=== PATIENT | female | born 1985 | race Caucasian/White ===

== ENCOUNTER 2020-03-09 11:21 | Outpatient (NON) | payer OTHER, SELFPAY ==
[2020-03-09 23:58] LABS: SARS-CoV-2 RNA PCR Negative
== END 2020-03-09 11:22 ==
LOC: ANHCOVIDDT 11:25
PROVIDERS: PCP Internal Medicine; Visit Provider Nurse Practitioner
DX: J02.9 Acute pharyngitis, unspecified (principal); Z20.828 Contact with and (suspected) exposure to other viral communicable diseases
CPT/HCPCS: 87635; C9803; U0003

== ENCOUNTER 2020-03-13 10:09 | Outpatient (CLI) | payer OTHER, SELFPAY | END 2020-03-13 10:10 | disposition home or self-care (01) | PROVIDERS: PCP Internal Medicine; Visit Provider Clinical Nurse Specialist | DX: J02.9 Acute pharyngitis, unspecified (principal) | CPT/HCPCS: 87081; 87880 ==

== ENCOUNTER 2021-12-22 15:49 | Outpatient (CLI) | payer OTHER, SELFPAY ==
--- NOTE | ~2021-12-22 | MR_ITS ---
EXAMINATION: MR brain/brain stem wo/w con DATE: 12/22/2021 16:31 INDICATION: Migraine headache. TECHNIQUE: Magnetic resonance imaging (MRI) of the brain and brainstem was performed without and with 15 mL MultiHance intravenous contrast. COMPARISON: None. FINDINGS: There is no intracranial hemorrhage, acute infarction, or abnormal intracranial mass lesion . The ventricles are normal in size. The paranasal sinuses are clear. The orbits are normal. The mast oid air cells are normal. IMPRESSION: 1. Normal brain. Reviewed, dictated and finalized at location A. IMPRESSION: 1. Normal brain.
== END 2021-12-22 15:50 | disposition home or self-care (01) ==
PROVIDERS: PCP Internal Medicine; Visit Provider Clinical Nurse Specialist
DX: G43.909 Migraine, unspecified, not intractable, without status migrainosus (principal)
CPT/HCPCS: 70553; A9577

== ENCOUNTER 2022-02-22 15:00 | Outpatient (RCR) | payer OTHER, SELFPAY ==
--- NOTE | 2022-02-14 16:48 | STOPEVAL1 ---
Assessment and note entered by Kristie Quintanilla, CLOSET ORGANIZER Evaluation Information Assessment Status Evaluation Diagnosis Dysphonia Onset 7 months Subjective Information Patient reports she experienced COVID in the June of 2020, and had lost her sense of taste and smell, and feels that she never has recovered her voice since then. 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 Patient reports that since suffering COVID in June last year, she feels that her voice is raspy and that she never fully recovered. She denies allergies other than to a dog that she tries to avoid, and denies history of GERD. Patient's voice was evaluated. It was judged to be moderately hoarse and raspy with moderately reduced habitual pitch and moderately reduced pitch range. Vocal loudness was on the lowest end of within normal limits (68 dB when 68-72 is considered the average range for vocal loudness within the confines of the speech therapy room.) Patient was instructed in the use of a vocal hygiene program to assist with improving vocal quality, and laryngeal massage and voice relaxation techniques to assist with reducing the stress in the larynx. She voiced understanding of home program. Therapist instructed the patient to find means of obtaining the children's attention without raising her voice, such as use of a sam or hand-clapping. She voiced understanding. Patient will continue in Speech Therapy 2x weekly for four weeks to address instruction for breathing exercises and speech/voice techniques to reduce the stress on the vocal cords when speaking. Plan of Care Interventions Treatment of Voice ST Services Indicated Yes These treatments will address the objective and functional deficits as defined above. The patient will be
--- NOTE | 2022-03-02 10:30 | PCSTNOTE ---
The patient treatment was not able to be completed on 03/02/22. Will plan to continue treatment per plan of care.
--- NOTE | 2022-03-22 11:06 | STOPDC ---
Assessment and note entered by Kristie Quintanilla SCRAP HOOKER Evaluation Information Assessment Status Discharge - Pt Not Presen Assessment ST Clinical Summary DISCHARGE SUMMARY This patient was seen for a Voice Evaluation and one follow-up treatment to instruct the patient in the use of a vocal hygiene program, gastroesophageal reflux precautions, laryngeal massage and other vocal cord relaxation techniques, and the use of the yawn-sigh method to reduce vocal tension while speaking. 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 Patient cancelled her next session due to illnless in the family and then did not reschedule due to being close to the holidays. Patient is being discharged with home exercise program in place however goals were not fully achieved. Patient may return to Speech Therapy after the holidays. Thank you for this referral. Plan of Care ST Services Indicated No
== END 2022-05-02 14:01 | disposition home or self-care (01) ==
LOC: ANHST 15:00
PROVIDERS: PCP Internal Medicine; Visit Provider Otolaryngology
DX: R47.89 Other speech disturbances (principal)
CPT/HCPCS: 92507; 92524

== ENCOUNTER 2023-02-08 20:47 | Emergency (ER) | payer OTHER, SELFPAY ==
--- NOTE | ~2023-02-08 | CT_ITS ---
EXAMINATION: CT brain wo con DATE: 02/08/2023 21:55 INDICATION: Right-sided paresthesias. Headache. TECHNIQUE: Computed tomography (CT) of the head was performed without intravenous contrast. The mA wa s adjusted according to patient size. Iterative reconstruction technique was employed. The dose-lengt h product was 605.33 mGy-cm. COMPARISON: Brain MRI 12/22/2021 FINDINGS: There is no intracranial hemorrhage, acute infarction, or abnormal intracranial mass lesion . The ventricles are normal in size. There is mild mucosal thickening in the ethmoid sinuses. The mas toid air cells are normal. The orbits are normal. IMPRESSION: 1. Normal brain. Reviewed, dictated and finalized at location E. STRIAL MAINTENANCE ELECTRICIAN IMPRESSION: 1. Normal brain.
[2023-02-08 20:50] VITALS: BP 134/81; PULSE 56; RESP 20; TEMP 36.8; O2SAT 100
--- NOTE | 2023-02-08 21:33 | ED.GENADULT ---
HPI - General Adult General Chief complaint: Unspecified Stated complaint: dizziness, blurry vision X24 hours Time Seen by Provider: 02/08/23 20:56 Source: patient Mode of arrival: ambulatory Limitations: no limitations History of Present Illness HPI narrative: This is a 37-year-old female who presents to the ED with multiple complaints all beginning nearly 24 hours ago. States last night she started to have blurred vision along with right-sided numbness/tingling to the R arm and R foot. She also reports some back pain and mild frontal headache. She reports a history of migraines and this does not feel the same. states that she has been able to ambulate but with some difficulty due to this blurred vision. Denies diplopia, dizziness. Reports the back pain is on either side of the lower back and she has had this in the past and sees a chiropractor. She reports that the blurred vision may be worse in the right eye and she has had right eye twitching. She also states that her blood pressure was high at home and which is abnormal. Denies fevers, chills, neck pain, chest pain, shortness of breath, cough, abdominal pain, urinary problems. Related Data Allergies Allergy/AdvReac Type Severity Reaction Status Date / Time amoxicillin Allergy Intermediate diarrhea/Ra Verified 02/08/23 20:47 sh Penicillins Allergy Intermediate Diarrhea/Ra Verified 02/08/23 20:47 sh azithromycin Allergy Unknown Verified 02/08/23 20:47 methylprednisolone Allergy Unknown Verified 02/08/23 20:47 Review of Systems Review of Systems: All systems as dictated in [facility] Past Medical History Medical History Allergies Headache IBS (irritable bowel syndrome) Surgical History Surgical History [place] teeth removed Family History Family History Father Hypertension Grandparent Breast cancer Acute myocardial infarction Heart failure Social History Social History (Updated 07/29/22 @ 09:35 by Precious Patel CMA) Smoking status: Never smoker Alcohol intake: current Substance use: never Lack of Transportation: No Lack of Food: Never True Current Housing: I Have Housing Concerned About Future Housing: No Difficulty Paying Gas/Electric Bills: No Difficulty Paying for Meds: No Currently Unemployed: No Education: Bachelor's Degree Difficulty w/ Childcare or Family Care: No Living arrangements: with family Exam Narrative: GENERAL: Well-appearing, well-nourished, and in no acute distress. HEAD: Normocephalic, atraumatic. EYES: PERRLA and EOMI. photophobia present ENT: Nares clear, no rhinorrhea or epistaxis. Mucous membranes moist. Oropharynx without tonsillar hypertrophy exudate or other lesions. NECK: Supple. No adenopathy or masses. CHEST: No respiratory distress. Clear to auscultation. No wheezes rales or rhonchi HEART: Regular rate and rhythm. No murmur heard. Normal peripheral pulses. ABDOMEN: Soft, nontender, nondistended, normal active bowel sounds. MSK: Normal range of motion. No edema. SKIN: Warm, dry, no rash. NEURO: Alert and oriented x4. No focal deficits. Cranial nerves II through XII intact. Subjective sensory change (paresthesias) noted in the right hand and right foot distally. 5/5 strength throughout the upper and lower extremities. No facial droop. Normal speech. Answers questions appropriately. PSYCH: Normal mood and affect. Course Course Emergency Course: Reevaluation 2328: Patient is feeling improved but is still having slight photophobia. Consult 2: Spoke with Dr. Staley( Neurology). He does not feel strongly that she needs to stay in the hospital. He recommends having her follow-up with PCP for an MRI. Vital Signs Vital signs: Vital Signs Temperature 98.2 F 02/08/23 20:50 Pulse Rate 56 L
[2023-02-08 22:13] LABS: Basophils Percent Auto 0.5 % (0.2-1.2); Eosinophils Absolute Auto 0.2 K/mm3 (0-0.3); Eosinophils Percent Auto 3.1 % (0-4.4); Hematocrit 39.3 % (37.0-47.0); Hemoglobin 13.6 g/dL (12.0-15.0); Immature Granulocyte Absolute 0.01 K/mm3 (0.00-0.031); Immature Granulocyte Percent A 0.1 % (0-0.5); Lymphocytes Percent Auto 45.2 % (18.3-44.2); Mean Corpuscular HGB Conc 34.6 g/dl (32-36); Mean Corpuscular Hemoglobin 29.6 pg (26-34); Mean Corpuscular Volume 85.6 fl (80-100); Mean Platelet Volume 10.5 fl (7.4-10.4); Monocytes Absolute Auto 0.7 K/mm3 (0.1-0.6); Monocytes Percent Auto 8.4 % (2.6-8.5); Neutrophils Absolute Auto 3.3 K/mm3 (1.3-6.7); Neutrophils Percent Auto 42.7 % (45.5-73.1); Platelet Count Result 281 k/mm3 (150-375); Red Blood Count 4.59 M/mm3 (4.2-5.4); Red Cell Distribution Width 12.5 % (11.5-14.5); White Blood Count 7.7 K/mm3 (4.5-10.0)
[2023-02-08 22:23] LABS: Alanine Aminotransferase 19 U/L (6-35); Albumin Level 4.4 g/dL (3.5-5.1); Alkaline Phosphatase 51 U/L (38-126); Anion Gap 5 mmol/L (8-16); Aspartate Amino Transferase 24 U/L (14-36); Bilirubin,Total 0.6 mg/dL (0.2-1.3); Blood Urea Nitrogen 10 mg/dL (7-17); Calcium 9.5 mg/dL (8.4-10.2); Carbon Dioxide 28 mmol/L (22-30); Chloride 102 mmol/L (98-107); Estimated CRCL calculation 71 ml/min; Estimated Glomerular Filt Rate > 60; Glucose 90 mg/dL (65-110); Potassium 3.7 mmol/L (3.4-5.0); Sodium 135 mmol/L (137-145)
[2023-02-08] MEDS: KETOROLAC 15 MG/ML VIAL (*BKC) IV PUSH (22:42)
[2023-02-08] MEDS: diphenhydrAMINE HCl INJ 50 MG/ML VIAL 25 MG IV PUSH (22:42)
[2023-02-08 22:58] VITALS: BP 131/96; PULSE 60; RESP 15; O2SAT 99
[2023-02-08 23:19] VITALS: BP 129/89; PULSE 65; RESP 15; O2SAT 99
[2023-02-08 23:56] VITALS: BP 114/79; PULSE 56; RESP 12; O2SAT 98
== END 2023-02-08 23:56 | disposition home or self-care (01) ==
PROVIDERS: Emergency Provider Physician Assistant; PCP Internal Medicine
DX: R20.2 Paresthesia of skin (principal); R51.9 Headache, unspecified; K58.9 Irritable bowel syndrome, unspecified
CPT/HCPCS: 36415; 70450; 80053; 85025; 96374; 96375; 99284; J1200; J1885

== ENCOUNTER → 2023-03-16 11:18 | Outpatient (CLI) | payer OTHER, SELFPAY ==
--- NOTE | ~2023-03-16 | MR_ITS ---
MRI of the brain Clinical History: Migraine Technique: Axial and sagittal T1-weighted images were acquired. These were followed by axial T2-weigh gladys, diffusion weighted, gradient, and FLAIR images. Following intravenous administration of 13 cc Mu ltiHance gadolinium, T1-weighted fat-sat imaging was performed in the axial and coronal planes. COMPARISON: 12/22/2021 Findings: There is no abnormal signal in the brain parenchyma. No acute infarct, intracranial hemorrh age, or mass lesion seen. Ventricles and subarachnoid spaces are unremarkable. Orbits are unremarkable. Paranasal sinuses and m astoid air cells are clear. Major intracranial flow voids are intact. Sagittal midline structures are intact. No abnormal postcontrast enhancement identified. IMPRESSION: Unremarkable exam. Reviewed, dictated and finalized at location . ION MASTER IMPRESSION: Unremarkable exam.
--- NOTE | ~2023-03-16 | XR_ITS ---
EXAMINATION:XR_CERV2-3V_CR DATE: 03/16/2023 11:33 INDICATION: Neck pain TECHNIQUE: AP, lateral, and odontoid views of the cervical spine are provided. COMPARISON: None FINDINGS: Alignment is normal. The odontoid process is intact. No fracture is identified. Vertebral b nir heights and disk spaces are normal. Prevertebral soft tissues are normal. IMPRESSION: 1. No acute osseous abnormality. Reviewed, dictated and finalized at location L. ATE INVESTIGATOR SURVEILLANCE
== END ==
PROVIDERS: PCP Internal Medicine; Visit Provider Clinical Nurse Specialist
DX: G43.909 Migraine, unspecified, not intractable, without status migrainosus (principal); M54.2 Cervicalgia
CPT/HCPCS: 70553; 72040; A9577

== ENCOUNTER 2023-11-29 15:59 | Outpatient (CLI) | payer OTHER, SELFPAY ==
[2023-11-29 19:09] LABS: Basophils Percent Auto 0.3 % (0.2-1.2); Eosinophils Absolute Auto 0.1 K/mm3 (0-0.3); Eosinophils Percent Auto 0.9 % (0-4.4); Hematocrit 41.5 % (37.0-47.0); Hemoglobin 14.4 g/dL (12.0-15.0); Immature Granulocyte Absolute 0.01 K/mm3 (0.00-0.031); Immature Granulocyte Percent A 0.1 % (0-0.5); Lymphocytes Absolute Auto 3.75 K/mm3 (0.9-3.2); Lymphocytes Percent Auto 43.6 % (18.3-44.2); Mean Corpuscular HGB Conc 34.7 g/dl (32-36); Mean Corpuscular Hemoglobin 29.8 pg (26-34); Mean Corpuscular Volume 85.7 fl (80-100); Mean Platelet Volume 11.3 fl (7.4-10.4); Monocytes Absolute Auto 0.8 K/mm3 (0.1-0.6); Monocytes Percent Auto 9.6 % (2.6-8.5); Neutrophils Absolute Auto 3.9 K/mm3 (1.3-6.7); Neutrophils Percent Auto 45.5 % (45.5-73.1); Platelet Count Result 271 k/mm3 (150-375); Red Blood Count 4.84 M/mm3 (4.2-5.4); Red Cell Distribution Width 12.2 % (11.5-14.5); White Blood Count 8.6 K/mm3 (4.5-10.0)
[2023-11-29 19:44] LABS: Iron 103 ug/dL (37-170)
[2023-11-29 19:54] LABS: Percent Iron Saturation 32 % (20-50)
[2023-11-29 19:57] LABS: Alanine Aminotransferase 16 U/L (6-35); Albumin Level 4.4 g/dL (3.5-5.1); Alkaline Phosphatase 49 U/L (38-126); Anion Gap 9 mmol/L (4-12); Aspartate Amino Transferase 41 U/L (14-36); Bilirubin,Total 0.8 mg/dL (0.2-1.3); Blood Urea Nitrogen 9 mg/dL (7-17); Calcium 9.4 mg/dL (8.4-10.2); Carbon Dioxide 28 mmol/L (22-30); Chloride 100 mmol/L (98-107); Estimated Glomerular Filt Rate > 60; Glucose 65 mg/dL (65-110); Potassium 4.3 mmol/L (3.4-5.0); Sodium 137 mmol/L (137-145)
[2023-11-29 20:20] LABS: Vitamin D 25 Hydroxy 37.2 ng/mL
== END 2023-11-29 16:00 | disposition home or self-care (01) ==
LOC: ANHGOSHLAB 16:00
PROVIDERS: PCP Clinical Nurse Specialist; Visit Provider Clinical Nurse Specialist
DX: E55.9 Vitamin D deficiency, unspecified (principal); G43.909 Migraine, unspecified, not intractable, without status migrainosus; D64.9 Anemia, unspecified; K58.9 Irritable bowel syndrome, unspecified; R74.8 Abnormal levels of other serum enzymes
CPT/HCPCS: 36415; 80053; 82306; 82607; 82728; 83540; 83550; 84443; 85025

== ENCOUNTER 2024-11-12 14:47 | Outpatient (CLI) | payer OTHER, SELFPAY ==
--- NOTE | ~2024-11-12 | CT_ITS ---
EXAMINATION: CT chest abdomen pelvis w con DATE: 11/14/2024 9:48 CDT INDICATION: Unspecified abdominal pain TECHNIQUE: Computed tomography (CT) of the chest, abdomen, and pelvis was performed without intraveno us contrast. The dose-length product was 387.51 mGy-cm. COMPARISON: None FINDINGS: CHEST CT: Heart is not enlarged. No enlarged mediastinal or hilar lymph nodes. Thoracic aorta is unremarkable. Tracheobronchial tree is patent. Minimal dependent atelectasis. No pneumothorax. No pulmonary mass. N o pulmonary nodules. ABDOMEN/PELVIS CT: There is a 1.5 cm low-density mass in the posterior segment of the right lobe of the liver. A liver m ass MRI is recommended. The liver is otherwise unremarkable. Spleen, adrenal glands, pancreas, kidneys and gallbladder are unremarkable. No enlarged lymph nodes in the abdomen or pelvis identified. No colitis. No dilated bowel loops. Bladder is unremarkable. Uterus is unremarkable. Moderate amount of stool. IMPRESSION: 1. No CT evidence for an acute process in the Chest, Abdomen or Pelvis. 2. There is a 1.5 cm low-density mass in the posterior segment of the right lobe of the liver. A live r mass MRI is recommended. Reviewed, dictated and finalized at location A. IMPRESSION: 1. No CT evidence for an acute process in the Chest, Abdomen or Pelvis. 2. There is a 1.5 cm low-density mass in the posterior segment of the right lob e of the liver. A liver mass MRI is recommended.
--- OUTSIDE RECORDS SUMMARY | 2024-11-12 15:19 | XMS_ITS | Clinical Summary ---
Author Organization [facility] Address Formerly [facility] [place] [address] Care Team Providers Care Expander Name Role Phone ClaryRamon villatoro Alejandrina DO Primary Care Provider [phone] Allergies Active Allergy Reactions Criticality Noted Date Comments Amoxicillin Diarrhea,Rash Medium 12/29/2021 Azithromycin Rash Low 05/01/2023 Penicillins Rash Medium 12/29/2021 Medications escitalopram (LEXAPRO) 10 MG tablet Take 1 tablet (10 mg total) by mouth daily. 4 Active erenumab-aooe (AIMOVIG) 140 mg/mL injection (autoinjector)Maddison cations:Chronic migraine w/o aura w/o status migrainosus, not intractable ADMINISTER 1 ML UNDER THE SKIN EVERY 30 DAYS 1 mL 11 4 Active carBAMazepine XR (TEGRETOL XR) 100 MG 12 hr tabletIndications: Trigeminal neuralgia Take 1 tablet (100 mg total) by mouth daily. 30 tablet 11 4 025 Active NURTEC 75 MG disintegrating tabletIndications: Chronic migraine w/o aura w/o status migrainosus, not intractable DISSOLVE 1 TABLET(75 MG) ON THE TONGUE DAILY NEEDED FOR MIGRAINE. MAX OF 1 TABLET 75 MG IN 24 HOURS 8 tablet 5 5 Active Active Problems No known active problems Encounters Date Type Department Care Team Description 09/11/2024 [facility] Documentation [facility] - [address], [address] [place] [address] Twyla Ruiz MD from Last 3 Months Social History Tobacco Use Types Packs/Day Years Used Date Smoking Tobacco: Never Passive Smoke Exposure: Never Smokeless Tobacco: Never Tobacco Cessation:Counseling Given: Yes Alcohol Use Standard Drinks/Week Comments Not Currently 0 (1 standard drink = 0.6 oz pur e alcohol) PHQ-2 Answer Date Recorded Patient Health Questionnaire-2 Score 0 03/11/2024 Comments Unknown Sex and Gender Information Value Date Recorded Sex Assigned at Not on file Legal Sex Female 3:31 PM KENNEL STAFF MEMBER Gender Identity Not on file Sexual Orientation Not on file Last Filed Vital Signs Vital Sign Reading Time Taken Comments Blood Pressure 107/72 03/11/2024 2:28 PM KENNEL STAFF MEMBER Pulse 72 03/11/2024 2:01 PM KENNEL STAFF MEMBER Temperature 37.2 C (99 F) 03/11/2024 2:01 PM KENNEL STAFF MEMBER Respiratory Rate - - Oxygen Saturation 100% 03/11/2024 2:01 PM KENNEL STAFF MEMBER Inhaled Oxygen Concentration - - Weight 61.2 kg (135 lb) 03/11/2024 2:01 PM KENNEL STAFF MEMBER Height 165.1 cm (5' 5) 01/22/2024 2:12 PM CDT Body Mass Index 22.47 01/22/2024 2:12 PM CDT Plan of Treatment Upcoming Encounters Date Type Department Care Team (Late st Contact Info) Description 03/13/2025 2:00 PM KENNEL STAFF MEMBER Office Visit [facility] - [address], [address] [place] [phone] Twyla Ruiz MD [address] [place] [address] Health Maintenance Due Date Last Done Comments Cervical Cancer Screening Pa p Smear (Age 30 to 64) Every 3 Years 1987 Annual Physical 07/17/1990 Hepatitis C 07/17/2005 DTaP, Tdap and Td Vaccines ( 1 - Tdap) 07/17/2006 Hepatitis B Vaccines (1 of 3 - 19+ 3-dose series) 07/17/2006 HPV Vaccines (1 - 3-dose SCD M series) 07/17/2014 Cervical Cancer Screening Pa p with HPV Testing (Age 30 to 64) Every 5 Years 07/17/2017 Cervical Cancer Screening wi th HPV 07/17/2017 COVID-19 Vaccine (2023-2 5 season) 2023 10/09/2020, 09/06/2020 PHQ-2 (Physician [place]) 04/03/2024 03/11/2024 Meningococcal B Vaccine Aged Out No l onger eligible based on patient's age to complete this topic Meningococcal Vaccine Aged Out No rebecca daryn eligible based on patient's age to complete this topic Pneumococcal Vaccine: Pediatrics (0 to 5 Years) and At-Risk Patients (6 to 49 Years) Aged Out No longer eligible b ased on patient's age to complete this topic RSV Immunizations Under 20 Months Aged Out No longer eligible b ased on patient's age to complete this topic Insurance Care Teams Expander Relationship Specialty Start Date End Date Ramon Ayoub DO [facility] [address] [place] [address] PCP - General INTERNAL MEDICINE 05/01/23
--- OUTSIDE RECORDS SUMMARY | 2024-11-12 15:19 | XMS_ITS | Clinical Summary ---
Author Organization [facility] Address [address] [place] [address] [place] [address] Phone Care Team Providers Care Mental Health Worker Name Role Phone Rafia Varner NP Primary Care Provider + [phone] DonovanAmber MD Unavailable Allergies Active Allergy Reactions Criticality Noted Date Comments Amoxicillin Rash Medium 12/29/2021 Penicillins Rash Medium 12/29/2021 Medications topiramate (TOPAMAX) 25 mg tablet Take 1 tablet (25 mg total) by mouth daily 02/27/2023 Active Ubrelvy 50 mg tablet TAKE 1 TABLET BY MOUTH 1 TIME. MAY REPEAT DOSE 1 TIME AFTER 2 HOURS NEEDED 02/28/2023 Active Active Problems Problem Noted Date Diagnosed Date Family history of breast cancer 12/29/2021 Encounter for screening mammogram for breast can cer 12/29/2021 Breast cancer screening, high risk patient 12/29 Resolved Problems Problem Noted Date Diagnosed Date Resolved Date Encounter for nonprocreative genetic counseling and testing 12/29/2021 05/17/2023 Medical History Medical History Date Comments Anxiety Bronchitis Tuberculosis Headache Sinus problem Hoarseness Asthma Family History Medical History Relation Name Comments Breast cancer Maternal Grandmother PALB2+ Mother Teresa Breast cancer Paternal Grandmother Breast cancer Sister 1 Kareen PALB2+ Sister 1 Kareen PALB2+ Sister 2 Geeta PALB2+ Sister 3 Lavern PALB2 Sister 4 Aileen Relation Name Status Comments Brother Alive Father Alive Maternal Grandfather Maternal Grandmother Mother Teresa Alive Paternal Grandmother Sister 1 Kareen Alive Sister 2 Geeta Alive Sister 3 Lavern Alive Sister 4 Aileen Alive Social History Tobacco Use Types Packs/Day Years Used Date Smoking Tobacco: Never Tobacco Cessation:Counseling Given: Not Answered AUDIT-C Answer Date Recorded Frequency of Alcohol Consumption Not on file 05/17/2023 Q2: How many drinks containi ng alcohol do you have on a typical day when you are drinking? Patient does not drink Frequency of Binge Drinking Not on file 05/04 Comments No Sex and Gender Information Value Date Recorded Sex Assigned at Not on file Legal Sex Female 1:45 PM CHEESE TESTER Gender Identity Not on file Sexual Orientation Not on file Obstetrics History Para Term AB IAB SAB Ectopic Multiple Livin g Live Births 2 2 2 Date Outcome GA Total Labor Labor/2nd/3rd Weight Sex Type Anes PTL Laury A1 A5 Name Clin Term Term Last Filed Vital Signs Vital Sign Reading Time Taken Comments Blood Pressure 127/78 05/17/2023 2:23 PM CHEESE TESTER Pulse 59 05/17/2023 2:23 PM CHEESE TESTER Temperature 36.3 C (97.4 F) 05/17/2023 2:23 PM CHEESE TESTER Respiratory Rate 18 05/17/2023 2:23 PM CHEESE TESTER Oxygen Saturation 100% 05/17/2023 2:23 PM CHEESE TESTER Inhaled Oxygen Concentration - - Weight 62 kg (136 lb 9.6 oz) 05/17/2023 2:23 PM CHEESE TESTER Height 160 cm (5' 3) 05/17/2023 2:23 PM CHEESE TESTER Body Mass Index 24.2 05/17/2023 2:23 PM CHEESE TESTER Plan of Treatment Health Maintenance Due Date Last Done Comments Cervical Cancer Screening 1987 Depression Screening 1987 Hepatitis C Screening 1987 DTaP/Tdap/Td Vaccine (1 - Tdap) 07/17/1998 Varicella Vaccines (1 of 2 - 13+ 2-dose series) 07/17/2000 Hepatitis B Screening 07/17/2005 Regular Well Visit/Exam 18-64 07/17/2005 HPV Vaccines (1 - 3-dose SCD M series) 07/17/2014 Covid-19 Vaccine (3 - 2023-2 5 season) 2023 10/09/2020, 09/06/2020 Influenza Vaccine (#1) 2024 Pneumococcal vaccine <65 Aged Out No longer eligible based on patient's age to complete this topic Insurance CHOICE PLUS CHOICE PLUS Care Teams Mental Health Worker Relationship Specialty Start Date End Date Rafia Varner TOY ELECTRIC TRAIN REPAIRER PCP - General Cardiovascular Disease 12/29/21 Amber Man MD [address] [place] [address] Surgeon Breast Surgery 04/19/23
--- OUTSIDE RECORDS SUMMARY | 2024-11-12 15:19 | XMS_ITS | Encounter Summary ---
Author Organization [facility] Address [address] [place] [address] Care Team Providers Care Saw Boss Name Role Phone ClaryRamon villatoro Primary Care Provider Encounter Details Date Type Department Care Team (Late Contact Info) Description 05/03/2023 [employer]hart Message Enc [facility] - [address], [address] [phone] Twyla Ruiz MD [address] [place] [address] [phone] Medication Social History Tobacco Use Types Packs/Day Years Used Date Smoking Tobacco: Never Smokeless Tobacco: Never Alcohol Use Standard Drinks/Week Comments Not Currently 0 (1 standard drink = 0.6 oz pur e alcohol) Comments Unknown Sex and Gender Information Value Date Recorded Sex Assigned at Not on file Legal Sex Female 3:31 PM DOSIER OPERATOR Gender Identity Not on file Sexual Orientation Not on file documented as of this encounter Plan of Treatment Upcoming Encounters Date Type Department Care Team (Late st Contact Info) Description 03/13/2025 2:00 PM DOSIER OPERATOR Office Visit [facility] - [address], [address] [place] [phone] Twyla Ruiz MD [address] [place] [address] [phone] documented as of this encounter Visit Diagnoses Not on filedocumented in this encounter Care Teams Saw Boss Relationship Specialty Start Date End Date Ramon Ayoub DO [address] [facility] [address] [place] [address] PCP - General INTERNAL MEDICINE 05/01/23 documented as of this encounter
== END 2024-11-12 14:48 | disposition home or self-care (01) ==
PROVIDERS: PCP Internal Medicine; Visit Provider Clinical Nurse Specialist
DX: R10.9 Unspecified abdominal pain (principal)
CPT/HCPCS: 71260; 74177; Q9967

== ENCOUNTER 2025-01-23 07:51 | Outpatient (CLI) | payer OTHER, SELFPAY ==
--- NOTE | ~2025-01-23 | NM_ITS ---
EXAMINATION: NM_HEPATWP_NM DATE: 01/23/2025 10:11 INDICATION: Right upper quadrant abdominal pain COMPARISON: None. TECHNIQUE: 4.6 mCi Tc-99m mebrofenin (Choletec) was administered intravenously. Scintigraphic images of the abdomen were obtained for one hour. 1.3 mcg sincalide (Kinevac) was administered by slow intravenous infusion, and imaging was continued for 30 minutes. Gallbladder ejection fraction was calculated by the technologist. FINDINGS: There is normal clearance of radiotracer from the blood pool. There is homogeneous tracer uptake by the liver. Activity progresses to the gallbladder and bowel. The gallbladder ejection fraction (GBEF) is 81% (normal 10-90%, but most patient with gallbladder dysfunction have GBEF < 35% which does overlap with the normal range). IMPRESSION: 1. Normal hepatobiliary scan. Reviewed, dictated and finalized at location A.
--- OUTSIDE RECORDS SUMMARY | 2025-01-23 07:57 | XMS_ITS | Encounter Summary ---
Author Organization [facility] Address [address] [place] [address] Care Team Providers Care Head Of Human Resources Name Role Phone ClaryRamon villatoro Primary Care Provider Encounter Details Date Type Department Care Team (Late Contact Info) Description 05/03/2023 [employer] Message Enc [facility] - [address], [address] [phone] Twyla Ruiz MD [address] [place] [address] [phone] Medication Social History Tobacco Use Types Packs/Day Years Used Date Smoking Tobacco: Never Smokeless Tobacco: Never Alcohol Use Standard Drinks/Week Comments Not Currently 0 (1 standard drink = 0.6 oz pur e alcohol) Comments Unknown Sex and Gender Information Value Date Recorded Sex Assigned at Not on file Legal Sex Female 3:31 PM MEASUREMENT PSYCHOLOGIST Gender Identity Not on file Sexual Orientation Not on file documented as of this encounter Plan of Treatment Upcoming Encounters Date Type Department Care Team (Late st Contact Info) Description 03/13/2025 2:00 PM MEASUREMENT PSYCHOLOGIST Office Visit [facility] - [address], [address] [place] [phone] Twyla Ruiz MD [address] [place] [address] [phone] documented as of this encounter Visit Diagnoses Not on filedocumented in this encounter Care Teams Head Of Human Resources Relationship Specialty Start Date End Date Ramon Ayoub DO [address] [facility] [address] [place] [address] PCP - General INTERNAL MEDICINE 05/01/23 documented as of this encounter
--- OUTSIDE RECORDS SUMMARY | 2025-01-23 07:57 | XMS_ITS | Clinical Summary ---
Author Organization [facility] Address [address] [place] [address] Care Team Providers Care Relay Checker Name Role Phone Ramon Ayoub DO Primary Care Provider [phone] Allergies Active Allergy Reactions Criticality Noted Date [...] Active Active Problems No known active problems Social History Tobacco Use Types Packs/Day Years [...] on file Legal Sex Female 3:31 PM MODERN LANGUAGES PROFESSOR Gender Identity Not on file Sexual Orientation Not on file Last Filed Vital Signs Vital Sign Reading Time Taken Comments Blood Pressure 107/72 03/11/2024 2:28 PM MODERN LANGUAGES PROFESSOR Pulse 72 03/11/2024 2:01 PM MODERN LANGUAGES PROFESSOR Temperature 37.2 C (99 F) 03/11/2024 2:01 PM MODERN LANGUAGES PROFESSOR Respiratory Rate - - Oxygen Saturation 100% 03/11/2024 2:01 PM MODERN LANGUAGES PROFESSOR Inhaled Oxygen Concentration - - Weight 61.2 kg (135 lb) 03/11/2024 2:01 PM MODERN LANGUAGES PROFESSOR Height 165.1 cm (5' 5) 01/22/2024 2:12 PM CDT Body Mass Index 22.47 01/22/2024 2:12 PM CDT Plan of Treatment Upcoming Encounters Date Type Department Care Team (Late st Contact Info) Description 03/13/2025 2:00 PM MODERN LANGUAGES PROFESSOR Office Visit [facility] Multispecialty Care - [address], [address] [place] [address] Twyla Ruiz MD [address] [place] [address] Health Maintenance Due Date Last Done Comments [...] Cervical Cancer Screening wi th HPV 07/17/2017 PHQ-2 (Physician [place]) 04/03/2024 03/11/2024 COVID-19 Vaccine (3 - 2024-2 6 season) 2024 10/09/2020, 09/06/2020 Influenza Adult (#1) 2025 Hepatitis A Vaccines Aged Out No long er eligible based on patient's age to complete this topic Meningococcal B Vaccine Aged Out No l [...] patient's age to complete this topic Insurance [facility] [address] Care Teams Relay Checker Relationship Specialty Start Date End Date Ramon Ayoub DO [address] [facility] [address] [place] [address] PCP - General INTERNAL MEDICINE 05/01/23
--- OUTSIDE RECORDS SUMMARY | 2025-01-23 07:57 | XMS_ITS | Clinical Summary ---
Author Organization [facility] Address [address] [facility] [facility] [address] [place] [address] Phone Care Team Providers Care Motor Hotel Manager Name Role Phone Rafia Varner NP Primary Care Provider [phone] DonovanAmber MD Unavailable [phone] Allergies Active Allergy Reactions Criticality Noted Date [...] nonprocreative genetic counseling and testing 12/29/2021 05/17/2023 Encounters Date Type Department Care Team Description 11/19/2024 5:22 PM CDT - 11/19/2024 11:59 PM CDT Hospital Encounter [facility] [id number] [address] Hepatomegaly, not elsewhere classified Discharge Disposition: Discharge to home or self care 11/19/2024 Orders Only [facility] Health Information Management [address] [place] [address] Scanning, Provider from Last 3 Months Medical History Medical History Date Comments Anxiety [...] on file Legal Sex Female 1:45 PM CHANGE PERSON Gender Identity Not on file Sexual Orientation Not on file Obstetrics History Para Term AB IAB SAB Ectopic Multiple Livin g Live Births 2 2 2 Date Outcome GA Total Labor Labor/2nd/3rd Weight Sex Type Anes PTL Laury A1 A5 Name Clin Term Term Last Filed Vital Signs Vital Sign Reading Time Taken Comments Blood Pressure 127/78 05/17/2023 2:23 PM CHANGE PERSON Pulse 59 05/17/2023 2:23 PM CHANGE PERSON Temperature 36.3 C (97.4 F) 05/17/2023 2:23 PM CHANGE PERSON Respiratory Rate 18 05/17/2023 2:23 PM CHANGE PERSON Oxygen Saturation 100% 05/17/2023 2:23 PM CHANGE PERSON Inhaled Oxygen Concentration - - Weight 62 kg (136 lb 9.6 oz) 05/17/2023 2:23 PM CHANGE PERSON Height 160 cm (5' 3) 05/17/2023 2:23 PM CHANGE PERSON Body Mass Index 24.2 05/17/2023 2:23 PM CHANGE PERSON Plan of Treatment Health Maintenance Due Date Last Done Comments Cervical Cancer Screening 1985 Depression Screening 1987 Hepatitis C Screening 1985 DTaP/Tdap/Td Vaccine (1 - Tdap) 07/17/1998 Varicella Vaccines (1 of 2 - 13+ 2-dose series) 07/17/2000 Hepatitis B Screening 07/17/2005 Regular Well Visit/Exam 18-64 07/17/2005 HPV Vaccines (1 - 3-dose SCD M series) 07/17/2014 Covid-19 Vaccine (3 - 2024-2 6 season) 2024 10/09/2020, 09/06/2020 Influenza Vaccine (#1) 2024 Pneumococcal vaccine <65 Aged Out No longer eligible based on patient's age to complete this topic Procedures Procedure Name Priority Date/Time Associated Diagnosis Comments MRI ABDOMEN W WO CONTRAST Schedule Routine, Read Routine (OP Routine) 11/19/2024 6:20 PM CDT Hepatomegaly, not elsewhere classified SCAN - OTHER ORDERS 11/19/2024 from Last 3 Months Results * MRI Abdomen W WO Contrast (11/19/2024 6:20 PM CDT) Anatomical Region Laterality Modality Body N/A Magnetic Resonan ce 11/20/2024 9:33 AM CDT Impressions 11/20/2024 5:32 PM CDT Small segment 2 simple cyst and segment 6 benign hemangioma. Otherwise, normal MRI of the liver. Dictated by: Casper Leone MD The radiology attending physician has personally reviewed this study, and had reviewed and/or edited this written report and agrees with it. Electronically signed by: Geeta Love M.D. Narrative 11/20/2024 5:32 PM CDT EXAMINATION: MAGNETIC RESONANCE IMAGING OF THE ABDOMEN WITH AND WITHOUT CONTRAST HISTORY: Hepatomegaly, abdominal pain TECHNIQUE: Magnetic resonance imaging of the abdomen was performed prior to and following the uneventful administration of intravenous contrast. Protocol: Liver Contrast: Dotarem (gadoterate) 12 mL COMPARISON: CT 09/20/10 FINDINGS: Liver: No significant fat or iron deposition. - Bile ducts: Nondilated - Focal liver lesions: Segment 2 simple cyst and segment 6 hemangioma - Vasculature: Patent hepatic and portal veins. Gallbladder: Normal Pancreas: Normal Spleen: Normal Adrenals: Normal Kidneys: Normal Other Findings: No suspicious osseous lesion. Imaged lung bases are clear. No abdominal lymphadenopathy. Procedure Note Geeta Love MD - 11/20/2024 EXAMINATION: MAGNETIC RESONANCE IMAGING OF THE ABDOMEN WITH AND WITHOUT CONTRAST HISTORY: Hepatomegaly, abdominal pain TECHNIQUE: Magnetic resonance imaging of the abdomen was performed prior to and following the uneventful administration of intravenous contrast. Protocol: Liver Contrast: Dotarem (gadoterate) 12 mL COMPARISON: CT 09/20/10 FINDINGS: Liver: No significant fat or iron deposition. - Bile ducts: Nondilated - Focal liver lesions: Segment 2 simple cyst and segment 6 hemangioma - Vasculature: Patent hepatic and portal veins. Gallbladder: Normal Pancreas: Normal Spleen: Normal Adrenals: Normal Kidneys: Normal Other Findings: No suspicious osseous lesion. Imaged lung bases are clear. No abdominal lymphadenopathy. IMPRESSION: Small segment 2 simple cyst and segment 6 benign hemangioma. Otherwise, normal MRI of the liver. Dictated by: Casper Leone MD The radiology attending physician has personally reviewed this study, and had reviewed and/or edited this written report and agrees with it. Electronically signed by: Geeta Love M.D. Rafia Varner NP IM MRI PROCEDURES Final Res ult * SCAN - OTHER ORDERS (11/19/2024) Provider Scanning Final Result from Last 3 Months Insurance [facility] CHO[facility]US [facility] H[facility]/PPO Address: [address] [address] [facility] CHOICE [facility]US [facility] H[facility]/PPO Address: [place] [phone] Care Teams Motor Hotel Manager Relationship Specialty Start Date End Date Rafia Varner NP PCP - General Cardiovascular Disease 12/29/21 Amber Man MD [address] [place] [address] Surgeon Breast Surgery 04/19/23
== END 2025-01-23 07:52 | disposition home or self-care (01) ==
PROVIDERS: PCP Clinical Nurse Specialist; Visit Provider Nurse Practitioner Family
DX: R10.11 Right upper quadrant pain (principal); R10.13 Epigastric pain; R11.0 Nausea
CPT/HCPCS: 78227; A9537; J2805

== ENCOUNTER 2025-02-01 10:51 | Outpatient (NON) | payer OTHER, SELFPAY ==
--- NOTE | 2025-02-01 | S_PTH ---
PATIENT: Diana Abdi LOC: [facility] U#:[id number] AGE/SX: 39/F ROOM: RE02/01/[address]: Abner Carballo MD : 1985 BED: DIS: 02/01/2025 SPEC #: [id number] RECD: 02/04/25 11:49 STATUS: EZEQUIEL REQ #: [id number] DERRICK: 02/01/25 00:[address]: Abner Carballo DEPT: [facility] Surgical RECD BY: Claribel Braswell ENTERED: 02/04/25 11:50 SP TYPE: Surgical OTHR DR: Ramon Ayoub DO Tissues: A - Duodenal Biopsy B - Gastric Biopsy C - Gastric Biopsy Procedures: Hematoxylin and Eosin Stain Gross and Microscopic Level 4
--- OUTSIDE RECORDS SUMMARY | 2025-02-04 12:53 | XMS_ITS | Encounter Summary ---
Author Organization [facility] Address [address] [place] [address] Care Team Providers Care Defective Cigarette Slitter Name Role Phone ClaryRamon villatoro Primary Care Provider Encounter Details Date Type Department Care Team (Late Contact Info) Description 05/03/2023 Product World[employer] Message Enc [facility] - [address], [address] [phone] Twyla Ruiz MD [address] [place] [phone] Medication Social History Tobacco Use Types Packs/Day Years Used Date Smoking Tobacco: Never Smokeless Tobacco: Never Alcohol Use Standard Drinks/Week Comments Not Currently 0 (1 standard drink = 0.6 oz pur e alcohol) Comments Unknown Sex and Gender Information Value Date Recorded Sex Assigned at Not on file Legal Sex Female 3:31 PM ROUGH AND TRUING MACHINE OPERATOR Gender Identity Not on file Sexual Orientation Not on file documented as of this encounter Plan of Treatment Upcoming Encounters Date Type Department Care Team (Late st Contact Info) Description 03/13/2025 2:00 PM ROUGH AND TRUING MACHINE OPERATOR Office Visit [facility] - [address], [address] [place] [phone] Twyla Ruiz MD [address] [place] [phone] documented as of this encounter Visit Diagnoses Not on filedocumented in this encounter Care Teams Defective Cigarette Slitter Relationship Specialty Start Date End Date Ramon Ayoub DO [address] [facility] [address] [place] [address] PCP - General INTERNAL MEDICINE 05/01/23 documented as of this encounter
--- OUTSIDE RECORDS SUMMARY | 2025-02-04 12:53 | XMS_ITS | Clinical Summary ---
Author Organization [facility] Address [address] [facility] [address] [place] [address] Phone Care Team Providers Care Timber Treating Tank Operator Name Role Phone Rafia Varner NP Primary Care Provider [phone] DonovanAmber MD Unavailable [phone] Allergies Active Allergy Reactions Criticality Noted Date [...] - 11/19/2024 11:59 PM CDT Hospital Encounter [facility] [address] [address] Hepatomegaly, not elsewhere classified Discharge Disposition: Discharge to home or self care 11/19/2024 Orders Only [facility] Health Information Management 1 [place] [address] Scanning, Provider from Last 3 Months Medical [...] on file Legal Sex Female 1:45 PM PAVER INSTALLER Gender Identity Not on file Sexual Orientation Not on file Obstetrics History Para Term AB IAB SAB Ectopic Multiple Livin g Live Births 2 2 2 Date Outcome GA Total Labor Labor/2nd/3rd Weight Sex Type Anes PTL Laury A1 A5 Name Clin Term Term Last Filed Vital Signs Vital Sign Reading Time Taken Comments Blood Pressure 127/78 05/17/2023 2:23 PM PAVER INSTALLER Pulse 59 05/17/2023 2:23 PM PAVER INSTALLER Temperature 36.3 C (97.4 F) 05/17/2023 2:23 PM PAVER INSTALLER Respiratory Rate 18 05/17/2023 2:23 PM PAVER INSTALLER Oxygen Saturation 100% 05/17/2023 2:23 PM PAVER INSTALLER Inhaled Oxygen Concentration - - Weight 62 kg (136 lb 9.6 oz) 05/17/2023 2:23 PM PAVER INSTALLER Height 160 cm (5' 3) 05/17/2023 2:23 PM PAVER INSTALLER Body Mass Index 24.2 05/17/2023 2:23 PM PAVER INSTALLER Plan of Treatment Health Maintenance Due Date [...] Final Result from Last 3 Months Insurance [facility] CHOICE PLUS [facility] CHOICE PLUS Member Subscriber Plan / Payer (Ef fective 2021-Present) Name:Diana Abdi Relation to Subscriber:Self Name:Diana Abdi Payer ID:[id number] (NAIC) Type:[facility] HMO/PPO Address: [place] [phone] Care Teams Timber Treating Tank Operator Relationship Specialty Start Date End Date Rafia Varner NP PCP - General Cardiovascular Disease 12/29/21 Amber Man MD [address] [place] [address] Surgeon Breast Surgery 04/19/23
--- OUTSIDE RECORDS SUMMARY | 2025-02-04 12:53 | XMS_ITS | Clinical Summary ---
Author Organization [facility] Address [address] [place] [address] Care Team Providers Care Insurance Law Specialist Name Role Phone Ramon Ayoub DO Primary Care Provider [phone] Allergies Active Allergy Reactions Criticality Noted Date [...] on file Legal Sex Female 3:31 PM GRAIN COMBINER Gender Identity Not on file Sexual Orientation Not on file Last Filed Vital Signs Vital Sign Reading Time Taken Comments Blood Pressure 107/72 03/11/2024 2:28 PM GRAIN COMBINER Pulse 72 03/11/2024 2:01 PM GRAIN COMBINER Temperature 37.2 C (99 F) 03/11/2024 2:01 PM GRAIN COMBINER Respiratory Rate - - Oxygen Saturation 100% 03/11/2024 2:01 PM GRAIN COMBINER Inhaled Oxygen Concentration - - Weight 61.2 kg (135 lb) 03/11/2024 2:01 PM GRAIN COMBINER Height 165.1 cm (5' 5) 01/22/2024 2:12 PM CDT Body Mass Index 22.47 01/22/2024 2:12 PM CDT Plan of Treatment Upcoming Encounters Date Type Department Care Team (Late st Contact Info) Description 03/13/2025 2:00 PM GRAIN COMBINER Office Visit [facility] Multispecialty Care - [address], [address] [place] [address] Twyla Ruiz MD [address] [place] [address] Health Maintenance Due Date Last Done Comments [...] Screening wi th HPV 07/17/2017 PHQ-2 (Physician [place]) 04/03/2024 03/11/2024 COVID-19 Vaccine (3 - 2024-2 [...] patient's age to complete this topic Insurance [facility] Care Teams Insurance Law Specialist Relationship Specialty Start Date End Date Ramon Ayoub DO [address] [facility] [address] [place] [address] PCP - General INTERNAL MEDICINE 05/01/23
== END 2025-02-01 10:52 | disposition home or self-care (01) ==
LOC: ANHLAB 02-04 10:53
PROVIDERS: PCP Internal Medicine; Visit Provider Internal Medicine Gastroenterology
DX: K21.9 Gastro-esophageal reflux disease without esophagitis (principal)
CPT/HCPCS: 88305

== ENCOUNTER 2025-03-18 06:17 | Day surgery (SDC) | payer OTHER, SELFPAY ==
[2025-03-05 14:24] VITALS: BMI 24.5
[2025-03-18] VITALS (9 sets, daily range): BP systolic 103–120; BP diastolic 55–80; PULSE 72–92; RESP 10–16; TEMP 36.4–37.2; O2SAT 98–100
--- OUTSIDE RECORDS SUMMARY | 2025-03-18 06:52 | XMS_ITS | Encounter Summary ---
Author Organization [facility] Address [address] [place] [address] Care Team Providers Care Manufacturing Supervisor 2Nd Shift Name Role Phone Claryshauna Ramon Alejandrina CORDERO Primary Care Provider Encounter Details Date Type Department Care Team (Late Contact Info) Description 05/03/2023 PURE H20 BIO TECHNOLOGIESt Message Enc [facility] - [address], [address] [phone] Twyla Ruiz MD [address] [place] [address] Medication Social History Tobacco Use Types Packs/Day Years Used Date Smoking Tobacco: Never Smokeless Tobacco: Never Alcohol Use Standard Drinks/Week Comments Not Currently 0 (1 standard drink = 0.6 oz pur e alcohol) Comments Unknown Sex and Gender Information Value Date Recorded Sex Assigned at Not on file Legal Sex Female 3:31 PM PERIOPERATIVE ASSISTANT Gender Identity Not on file Sexual Orientation Not on file documented as of this encounter Plan of Treatment Upcoming Encounters Date Type Department Care Team (Late Contact Info) Description 03/20/2025 8:20 AM PERIOPERATIVE ASSISTANT Office Visit [facility] - [address], [address] [place] [phone] Twyla Ruiz MD [address] [place] [address] documented as of this encounter Visit Diagnoses Not on filedocumented in this encounter Care Teams Manufacturing Supervisor 2Nd Shift Relationship Specialty Start Date End Date Ramon Ayoub DO [address] [facility] [address] [place] [address] PCP - General INTERNAL MEDICINE 05/01/23 documented as of this encounter
--- OUTSIDE RECORDS SUMMARY | 2025-03-18 06:52 | XMS_ITS | Clinical Summary ---
Author Organization [facility] Address [facility] [place] [address] Care Team Providers Care Waste Specialist Name Role Phone Ramon Ayoub DO Primary Care Provider Allergies Active Allergy Reactions Criticality Noted Date Comments Amoxicillin Diarrhea,Rash Medium 12/29/2021 Azithromycin Rash Low 05/01/2023 Penicillins Rash Medium 12/29/2021 Medications escitalopram (LEXAPRO) 10 MG tablet Take 1 tablet (10 mg total) by mouth daily. 12/28/19 24 Active erenumab-aooe (AIMOVIG) 140 mg/mL injection (autoinjector)Maddison cations:Chronic migraine w/o aura w/o status migrainosus, not intractable ADMINISTER 1 ML UNDER THE SKIN EVERY 30 DAYS 1 mL 11 02/01/20 24 Active NURTEC 75 MG disintegrating tabletIndications: Chronic migraine w/o aura w/o status migrainosus, not intractable DISSOLVE 1 TABLET(75 MG) ON THE TONGUE DAILY NEEDED FOR MIGRAINE. MAX OF 1 TABLET 75 MG IN 24 HOURS 8 tablet 5 04/30/19 25 Active carBAMazepine XR (TEGRETOL XR) 100 MG 12 hr tabletIndications: Trigeminal neuralgia Take 1 tablet (100 mg total) by mouth daily. 30 tablet 11 03/11/20 24 025 Active Problems No known active problems Encounters Date Type Department Care Team Description 02/25/2025 Telephone [facility] Multispecialty Care - [address], [address] [place] [address] Twyla Ruiz MD Appointment Request from Last 3 Months Social History Tobacco [...] on file Legal Sex Female 3:31 PM CONFERENCE CONCIERGE Gender Identity Not on file Sexual Orientation Not on file Last Filed Vital Signs Vital Sign Reading Time Taken Comments Blood Pressure 107/72 03/11/2024 2:28 PM CONFERENCE CONCIERGE Pulse 72 03/11/2024 2:01 PM CONFERENCE CONCIERGE Temperature 37.2 C (99 F) 03/11/2024 2:01 PM CONFERENCE CONCIERGE Respiratory Rate - - Oxygen Saturation 100% 03/11/2024 2:01 PM CONFERENCE CONCIERGE Inhaled Oxygen Concentration - - Weight 61.2 kg (135 lb) 03/11/2024 2:01 PM CONFERENCE CONCIERGE Height 165.1 cm (5' 5) 01/22/2024 2:12 PM CDT Body Mass Index 22.47 01/22/2024 2:12 PM CDT Plan of Treatment Upcoming Encounters Date Type Department Care Team (Late st Contact Info) Description 03/20/2025 8:20 AM CONFERENCE CONCIERGE Office Visit [facility] Multispecialty Care - [address], [address] [place] [address] Twyla Ruiz MD [address] [place] [address] Health Maintenance Due Date Last Done Comments [...] Screening wi th HPV 07/17/2017 PHQ-2 (Physician [place]) 04/03/2024 03/11/2024 COVID-19 Vaccine (3 - 2024-2 [...] patient's age to complete this topic Insurance [facility] Care Teams Waste Specialist Relationship Specialty Start Date End Date Ramon Ayoub DO [address] [facility] [address] [place] [address] PCP - General INTERNAL MEDICINE 05/01/23
--- OUTSIDE RECORDS SUMMARY | 2025-03-18 06:52 | XMS_ITS | Clinical Summary ---
Author Organization [facility] Address [address] [facility] [address] [place] [id number] Phone Care Team Providers Care Metrology Technician Name Role Phone Rafia Varner NP Primary Care Provider + [phone] DonovanAmber mckeon MD Unavailable [phone] Allergies Active Allergy Reactions Criticality Noted Date [...] Encounters Date Type Department Care Team Description 02/19/2025 4:27 PM INTERNET WEBMASTER - 02/19/2025 7:18 PM INTERNET WEBMASTER Emergency [facility] Emergency Department [address] [place] [address] Jah Ojeda MD Migraine with aura and without status migrainosus, not intractable (Primary Dx) Discharge Disposition: Discharge to home or self care from Last 3 Months Medical History Medical [...] of Binge Drinking Not on file 05/04 Personal Safety Answer Date Recorded Have you ever been in or are you currently in a harmful physical or emotional relationship or is someone making you feel afraid or unsafe? Denies 02/19/2025 Comments No Sex and Gender Information Value Date Recorded Sex Assigned at Not on file Legal Sex Female 1:45 PM INTERNET WEBMASTER Gender Identity Not on file Sexual Orientation Not on file Obstetrics History Para Term AB IAB SAB Ectopic Multiple Livin g Live Births 2 2 2 Date Outcome GA Total Labor Labor/2nd/3rd Weight Sex Type Anes PTL Laury A1 A5 Name Clin Term Term Last Filed Vital Signs Vital Sign Reading Time Taken Comments Blood Pressure 113/75 02/19/2025 7:00 PM INTERNET WEBMASTER Pulse 77 02/19/2025 7:00 PM INTERNET WEBMASTER Temperature 36.6 C (97.8 F) 02/19/2025 4:30 PM INTERNET WEBMASTER Respiratory Rate 13 02/19/2025 7:00 PM INTERNET WEBMASTER Oxygen Saturation 100% 02/19/2025 7:00 PM INTERNET WEBMASTER Inhaled Oxygen Concentration - - Weight 61.7 kg (136 lb) 02/19/2025 4:30 PM INTERNET WEBMASTER Height 160 cm (5' 3) 02/19/2025 4:30 PM INTERNET WEBMASTER Body Mass Index 24.09 02/19/2025 4:30 PM INTERNET WEBMASTER Plan of Treatment Health Maintenance Due Date [...] Procedure Name Priority Date/Time Associated Diagnosis Comments EGFR STAT 02/19/2025 4:50 PM INTERNET WEBMASTER DIFFERENTIAL AUTO STAT 02/19/2025 4:5 0 PM INTERNET WEBMASTER TROPONIN T HIGH-SENSITIVITY SERIES (BASELINE, 2HR, 4HR, 6HR) Routine 02/19/2025 4:50 PM INTERNET WEBMASTER PROTIME-INR STAT 02/19/2025 4:50 PM INTERNET WEBMASTER PRO B-TYPE NATRIURETIC PEPTIDE STAT 02/19/2025 4:50 PM INTERNET WEBMASTER MAGNESIUM Routine 02/19/2025 4:50 PM INTERNET WEBMASTER COMPREHENSIVE METABOLIC PANEL STAT 02/19/2025 4:50 PM INTERNET WEBMASTER CBC WITH AUTO DIFFERENTIAL STAT 02/19/2025 4:50 PM INTERNET WEBMASTER APTT STAT 02/19/2025 4:50 PM INTERNET WEBMASTER ECG 12-LEAD Routine 02/19/2025 4:[address] STROKE PROTOCOL WO CONTRAST Critical/Life-T hreatening 02/19/2025 4:41 PM INTERNET WEBMASTER POCT GLUCOSE DEVICE Routine 02/19/2025 4 :32 PM INTERNET WEBMASTER from Last 3 Months Results * Troponin T high-sensitivity series (baseline, 2hr, 4hr, 6hr) (02/19/2025 4:50 PM INTERNET WEBMASTER) Trop T hs <6 <=14 ng/L Comment: Interpretive Data For further hscTnT resources including the diagnostic algorithm and an aid in interpretation, copy and paste this link: https://nrl.testcatalog.org/show/hsTrop Current Interpretive Data last revised 2020. Blood 02/19/2025 4:50 PM INTERNET WEBMASTER 02/19/2025 4:53 PM INTERNET WEBMASTER us Jah Ojeda MD LAB BLOOD ORDERABLES Final R esult [facility]) 1 [facility] Department of Laboratories [place], [place] [id number] * eGFR (02/19/2025 4:50 PM INTERNET WEBMASTER) eGFR >90 >=60 mL/min/1. 73 m2 Comment: Interpretive Data Reference Interval Normal >/= 90 mL/min/1.73m2 Mildly decreased* 60 - 89 mL/min/1.73m2 Mildly to moderately decreased 45 - 59 mL/min/1.73m2 Moderately to severely decreased 30 - 44 mL/min/1.73m2 Severely decreased 15 - 29 mL/min/1.73m2 Kidney Failure < 15 mL/min/1.73m2 *Relative to young adult level Estimated glomerular filtration rate is determined by the 2020 CKD-EPI equation recommended by the National Kidney Foundation (A Unifying Approach to GFR Estimation: Recommendations of the NKF-ASK Task Force on Reassessing the Inclusion of Race in Diagnosing Kidney Disease, JASN 2020). The CKD-EPI equation should not be used for patients with unstable renal function and has not been validated in children and those over 70. Current interpretive data was last reviewed 2021. Blood 02/19/2025 4:50 PM INTERNET WEBMASTER 02/19/2025 4:53 PM INTERNET WEBMASTER us Jah Ojeda MD LAB BLOOD ORDERABLES Final R esult [facility] ([place]) 1 [facility] Department [place] [address] * (ABNORMAL) Differential, auto (02/19/2025 4:50 PM INTERNET WEBMASTER) Neutrophil abs 3.45 1.50 - 6.50 K/cumm Imm gran abs 0.02 0.00 - 0.10 K/cumm [facility] ([place]) Lymphocyte abs 3.38(H) 0.80 - 3.30 K/cumm [facility] ([place]) Monocyte abs 0.64 0.20 - 0.80 K/cumm [facility] ([place]) Eosinophil abs 0.06 0.00 - 0.50 K/cumm [facility] ([place]) Basophil abs 0.04 0.00 - 0.10 K/cumm [facility] ([place]) Neutrophil pct 45.5 % [facility] ([place]) Comment: Interpretive Data Percent cell count reference ranges are not reported, since discordance with absolute values may lead to misinterpretation of CBC data. Current Interpretive Data was last revised on 2017. Imm gran pct 0.3 % [facility] ([place]) Comment: Interpretive Data Percent cell count reference ranges are not reported, since discordance with absolute values may lead to misinterpretation of CBC data. Current Interpretive Data was last revised on 2017. Lymphocyte pct 44.5 % [facility] ([facility]) Comment: Interpretive Data Percent cell count reference ranges are not reported, since discordance with absolute values may lead to misinterpretation of CBC data. Current Interpretive Data was last revised on 2017. Monocyte pct 8.4 % [facility] ([place]) Comment: Interpretive Data Percent cell count reference ranges are not reported, since discordance with absolute values may lead to misinterpretation of CBC data. Current Interpretive Data was last revised on 2017. Eosinophil pct 0.8 % [facility] ([facility]) Comment: Interpretive Data Percent cell count reference ranges are not reported, since discordance with absolute values may lead to misinterpretation of CBC data. Current Interpretive Data was last revised on 2017. Basophil pct 0.5 % [facility] ([place]) Comment: Interpretive Data Percent cell count reference ranges are not reported, since discordance with absolute values may lead to misinterpretation of CBC data. Current Interpretive Data was last revised on 2017. Blood 02/19/2025 4:50 PM INTERNET WEBMASTER 02/19/2025 4:53 PM INTERNET WEBMASTER us Jah Ojeda MD LAB BLOOD ORDERABLES Final R esult [facility] ([place]) 1 [facility] Department [place] [address] * Pro B-type natriuretic peptide (02/19/2025 4:50 PM INTERNET WEBMASTER) NT-proBNP <36 <=300 pg/mL Comment: Interpretive Comments: A. Dyspnea in Acute Care Setting All Ages: < 300 pg/ml, acute heart failure unlikely. < 50 yrs: 300 - 450 pg/ml, further investigation warranted. > 450 pg/ml, acute heart failure likely. 50 - 74 yrs: 300 - 900 pg/ml, further investigation warranted. > 900 pg/ml, acute heart failure likely . > or = 75 yrs: 450 - 1800 pg/ml, further investigation warranted. > 1800 pg/ml, acute heart failure likely. B. Non-acute Setting < 75 yrs < 125 pg/ml, rules out heart failure. > or = 125 pg/ml, further investigation warranted. > or = 75 yrs < 450 pg/ml, rules out heart failure. > or = 450 pg/ml, further investigation warranted. - Knowledge of each individual patient's NT-proBNP range may be more useful than using similar cut-points for every patient. Please note that marked elevations in NT-proBNP levels may be observed in state other than Left Ventricular Congestive Failure, including: acute coronary syndromes, right heart strain/failure (including pulmonary embolism and cor pulmonale), critical illness, renal failure, as well as advanced age. - References: 1. Dhruv BERRIOS et.al. Eur Heart J. 2006:27:330-337. 2. Terry RW, Monique AM. J. AM Leo Cardiol: Cardiovasc Imag. 2009;2: 216- 225. Interpretive Data Last Revised Date: 2017. Blood 02/19/2025 4:50 PM INTERNET WEBMASTER 02/19/2025 4:53 PM INTERNET WEBMASTER Jah Ojeda MD LAB BLOOD ORDERABLES Final R esult Performing Organization Address City/[facility]/ZIP Co de Phone Number [facility] ([place]) 1 [facility] [place] [address] * (ABNORMAL) CBC with auto differential (02/19/2025 4:50 PM INTERNET WEBMASTER) WBC 7.59 3.80 - 9.90 K/cumm Hgb 13.8 11.9 - 15.5 g/dL [facility] ([place]) Hct 38.6 35.6 - 45.5 % [facility] ([place]) Plt 267 150 - 400 K/cumm [facility] ([place]) MPV 10.8 9.1 - 12.3 fL [facility] ([place]) RBC 4.67 3.90 - 5.20 M/cumm [facility] ([place]) MCV 82.7 81.3 - 96.4 fL [facility] ([place]) MCH 29.6 27.1 - 33.3 pg [facility] ([place]) MCHC 35.8(H) 32.3 - 35.7 g/dL [facility] ([place]) RDW CV 12.3 11.1 - 14.9 % [facility] ([place]) RDW SD 37.2 35.7 - 48.1 fL [facility] ([place]) NRBC abs 0.00 0.00 - 0.01 K/cumm [facility] ([place]) Blood 02/19/2025 4:50 PM INTERNET WEBMASTER 02/19/2025 4:53 PM INTERNET WEBMASTER Jah Ojeda MD LAB BLOOD ORDERABLES Final R esult [facility] ([place]) 1 [facility] [place] [address] * aPTT (02/19/2025 4:50 PM INTERNET WEBMASTER) aPTT 30 26 - 38 sec [facility] ([place]) Comment: Interpretive Data Heparin therapeutic range: 66.0 - 100.0 seconds. Range based on correlation with therapeutic heparin activity range of 0.3 - 0.7 Units/mL. Blood 02/19/2025 4:50 PM INTERNET WEBMASTER 02/19/2025 4:53 PM INTERNET WEBMASTER Jah Ojeda MD LAB BLOOD ORDERABLES Final R esult [facility] ([place]) 1 [facility] [place] [address] * Protime-INR (02/19/2025 4:50 PM INTERNET WEBMASTER) PT 11.5 10.2 - 13.5 sec [facility] ([place]) INR 1.02 0.90 - 1.20 [facility] ([place]) Comment: Interpretive data Oral anticoagulant therapeutic ranges: Venous thromboembolism prophylaxis or treatment: 2.0-3.0 CARDIOLOGY Standard range: 2.0-3.0 High-intensity range: 2.5-3.5 Refer to indication-specific guidelines for appropriate target ranges for prosthetic heart valve replacement. Current interpretive data was last revised on 2019. Blood 02/19/2025 4:50 PM INTERNET WEBMASTER 02/19/2025 4:53 PM INTERNET WEBMASTER Jah Ojeda MD LAB BLOOD ORDERABLES Final R esult [facility] ([place]) 1 [facility] [place] [address] * Magnesium (02/19/2025 4:50 PM INTERNET WEBMASTER) Magnesium 2.1 1.4 - 2.5 mg/dL Blood 02/19/2025 4:50 PM INTERNET WEBMASTER 02/19/2025 4:53 PM INTERNET WEBMASTER us Jah Ojeda MD LAB BLOOD ORDERABLES Final R esult [facility] ([place]) 1 [facility] Department [place] [address] * Comprehensive metabolic panel (02/19/2025 4:50 PM INTERNET WEBMASTER) Sodium 137 135 - 145 mmol/L Potassium, pl 3.6 3.3 - 4.9 mmol/L [facility] ([place]) Chloride 104 97 - 110 mmol/L [facility] ([place]) CO2 24 22 - 32 mmol/L [facility] ([place]) Anion gap 9 2 - 15 mmol/L [facility] ([place]) BUN 9 6 - 25 mg/dL [facility] ([place]) Creatinine 0.65 0.60 - 1.10 mg/dL [facility] ([place]) Glucose 83 70 - 199 mg/dL [facility] ([place]) Comment: Interpretive Data Fasting glucose >/= 126 mg/dl is diagnostic for diabetes. Fasting is defined as no caloric intake for at least 8 hours. Fasting glucose between 100 mg/dl to 125 mg/dl is diagnostic of prediabetes. In a patient with classic symptoms of hyperglycemia or hyperglycemic crisis, a random glucose >/= 200 mg/dl is diagnostic for diabetes. In the absence of unequivocal hyperglycemia, results should be confirmed by repeat testing. The classification and Diagnosis of Diabetes Diabetes Care 2021; 46: S19-S40. Current interpretive data was last revised 2022. Calcium 9.1 8.5 - 10.3 mg/dL [facility] ([place]) Bilirubin, total 0.5 0.1 - 1.2 mg/dL [facility] ([place]) Protein, pl 6.6 6.5 - 8.5 g/dL [facility] ([place]) Albumin 4.5 3.5 - 5.0 g/dL [facility] ([place]) Alk phos 55 40 - 130 Units/L [facility] ([place]) ALT 16 7 - 45 Units/L [facility] ([place]) AST 20 10 - 45 Units/L [facility] ([place]) Blood 02/19/2025 4:50 PM INTERNET WEBMASTER 02/19/2025 4:53 PM INTERNET WEBMASTER Jah Ojeda MD LAB BLOOD ORDERABLES Final R esult Performing Organization Address City/[facility] Co de Phone Number [facility] ([place]) 1 [facility] Department [place] [address] * ECG 12 lead (02/19/2025 4:48 PM INTERNET WEBMASTER) 02/19/2025 4:48 PM INTERNET WEBMASTER Narrative [facility] - 02/20/2025 7:56 AM INTERNET WEBMASTER Vent Rate: 61 bpm RR Interval: 980 msec WA Interval: 167 msec QRS Duration: 85 msec QT Interval: 429 msec QTC Interval: 431 msec P-R-T Ragland: 17 - 47 - 36 degrees IMPRESSION: SINUS RHYTHM NORMAL ECG Electronically Signed By: Skinny Castillo MD Jah Ojeda MD ECG ORDERABLES Final Result Performing Organization Address [facility] de Phone Number [facility] * CT Stroke Head WO Contrast (02/19/2025 4:41 PM INTERNET WEBMASTER) Anatomical Region Laterality Modality Head N/A Computed Tomogra phy 02/19/2025 4:47 PM INTERNET WEBMASTER Impressions 02/19/2025 4:47 PM INTERNET WEBMASTER 1. No acute intracranial findings. The Critical results were discussed with physician press assistant and feeder Hailey by Dr. Alonzo on 02/19/2025 4:46 PM. Electronically signed by: Fei Alonzo M.D. Narrative 02/19/2025 4:47 PM INTERNET WEBMASTER EXAMINATION: CT STROKE HEAD WO CONTRAST HISTORY: Headache. Loss of vision left eye. Last well at 3:00 PM today. TECHNIQUE: Axial images acquired through the brain without intravenous contrast. Images stored on PACS. Automated exposure control was used as a dose optimization technique for this examination. COMPARISON: FINDINGS: BRAIN: There are no extra-axial fluid collections. No evidence of hemorrhage. Collado-white matter differentiation is normal. Ventricles and sulci demonstrate a normal size and configuration. No shift of midline structures or of mass effect. EXTRA-AXIAL SPACES: There is no extra-axial fluid collection or mass. CALVARIUM: There is no calvarial fracture. SINUSES/MASTOIDS: The paranasal sinuses and the mastoid air cells are normal in appearance. ORBITS: The globes are intact. The intraconal fat is normal in appearance. Procedure Note Fei Alonzo MD - 02/19/2025 EXAMINATION: CT STROKE HEAD WO CONTRAST HISTORY: Headache. Loss of vision left eye. Last well at 3:00 PM today. TECHNIQUE: Axial images acquired through the brain without intravenous contrast. Images stored on PACS. Automated exposure control was used as a dose optimization technique for this examination. COMPARISON: FINDINGS: BRAIN: There are no extra-axial fluid collections. No evidence of hemorrhage. Collado-white matter differentiation is normal. Ventricles and sulci demonstrate a normal size and configuration. No shift of midline structures or of mass effect. EXTRA-AXIAL SPACES: There is no extra-axial fluid collection or mass. CALVARIUM: There is no calvarial fracture. SINUSES/MASTOIDS: The paranasal sinuses and the mastoid air cells are normal in appearance. ORBITS: The globes are intact. The intraconal fat is normal in appearance. IMPRESSION: 1. No acute intracranial findings. The Critical results were discussed with physician assistant Hart by Dr. Alonzo on 02/19/2025 4:46 PM. Electronically signed by: Fei Alonzo M.D. us Jah Ojeda MD IMG CT PROCEDURES Final Resu lt * POCT glucose (02/19/2025 4:32 PM INTERNET WEBMASTER) Glucose, POC 81 70 - 199 mg/dL Blood 02/19/2025 4:32 PM INTERNET WEBMASTER 02/19/2025 4:32 PM INTERNET WEBMASTER us Notinfile Unknown LAB POCT ORDERABLES - DEVICE F inal Result [facility] ([place]) 1 [facility] Department [place] [address] from Last 3 Months Insurance [facility] CHO[employer]US [facility] HMO/PPO Address: [place] [address] CHOICE PLUS [facility] HMO/PPO Address: [place] [address] Care Teams Metrology Technician Relationship Specialty Start Date End Date Rafia Varner NP PCP - General Cardiovascular Disease 12/29/21 Amber Man MD Fadi [address] [place] [address] Surgeon Breast Surgery 04/19/23
[2025-03-18] MEDS: ACETAMINOPHEN 500 MG TABLET 1000 MG PO (07:12)
[2025-03-18] MEDS: LACTATED RINGERS 1,000 ML 30 ML IV CONT ×3 (07:14→11:01)
--- NOTE | 2025-03-18 07:30 | WPDHPUPDATE1 ---
History and Physical Update Update Date/Time: 03/18/25 07:30 History and Physical has been reviewed, including an updated exam of the patient. There are NO changes in the patient's condition. Risks, benefits, and alternatives have been discussed and questions answered. Patient agrees to proceed with procedure.
--- NOTE | 2025-03-18 09:15 | P.PNAN_ITS ---
Anes - Initial Pre Proc Eval Procedure: Operation Date: 03/18/25 08:30 Proposed Procedures p Endoscopic Assisted Septoplasty - Geraldo Reardon MD s Bilateral Turbinate Reduction with Outfracture - Geraldo Reardon MD Date/Time: 03/18/25 09:15 Surgeon: Geraldo Reardon MD Pre Op Diagnosis: Chronic Sinusitis Patient Data Age: 39 Gender: F Height: 1.6 m Weight: 63.7 kg Last Vital Signs Temp 99 F 03/18/25 07:08 Pulse 73 03/18/25 07:08 Resp 16 03/18/25 07:08 BP 114/55 L 03/18/25 07:08 Pulse Ox 100 03/18/25 07:08 O2 Del Method Room Air 03/18/25 07:08 Allergies Allergy/AdvReac Type Severity Reaction Status Date / Time amoxicillin Allergy Intermediate diarrhea/Ra Verified 03/18/25 07:01 sh Penicillins Allergy Intermediate Diarrhea/Ra Verified 03/18/25 07:01 sh azithromycin Allergy Unknown Verified 03/18/25 07:01 methylprednisolone Allergy Unknown Verified 03/18/25 07:01 Home Medications ?Medication ?Instructions ?Recorded ?Confirmed ?Type albuterol sulfate 90 mcg/actuation See Rx Instructions inhalation Q4H 09/17/21 03/18/25 Rx aerosol inhaler PRN shortness of breath or wheezing #8.5 grams erenumab-aooe 140 mg/mL 140 mg subcut MONTHLY 03/18/25 History subcutaneous auto-injector (Aimovig Autoinjector) rimegepant 75 mg disintegrating 75 mg PO DAILY PRN jeremy trevin 11/09/23 03/18/25 History tablet (Nurtec ODT) headache escitalopram oxalate 10 mg tablet 10 mg PO DAILY #30 t abs 10/25/24 03/18/25 Rx (Lexapro) carbamazepine 100 mg 100 mg PO Q12H 01/07/2503/03 History capsule,extended release [id number] (Carbatrol) omeprazole 40 mg capsule,delayed 40 mg PO DAILY #30 ca ps 01/07/25 03/18/25 Rx release mupirocin 2 % topical ointment 1 applic topical BID #2 2 grams 03/11/25 03/18/25 Rx (Centany) Patient hx anesthesia problems: none Family hx anesthesia problems: none Results Review: All pre-operative results and documents have been reviewed as part of the pre- operative evaluation. [facility] Past Medical History Medical History Preauricular lymphadenopathy Hospital discharge follow-up Nasal septal deviation Breathy voice quality Nasal septal deviation Chronic fungal laryngitis Laryngitis, chronic Migraines Genetic susceptibility to malignant neoplasm of breast Family history of breast cancer Encounter for screening mammogram for breast cancer Vitamin D deficiency Routine gynecological examination Sore throat IBS (irritable bowel syndrome) Headache Allergies Surgical History Surgical History Ranson teeth removed Family History Family History Father Hypertension Grandparent Breast cancer Acute myocardial infarction Heart failure Social History Social History Smoking status: Never smoker Second hand tobacco smoke exposure: Yes Alcohol intake: current Substance use: never Substance use type: does not use Lack of Transportation: No Lack of Food: Never True Current Housing: I Have Housing Concerned About Future Housing: No Difficulty Paying Gas/Electric Bills: No Difficulty Paying for Meds: No Currently Unemployed: No Education: Bachelor's Degree Difficulty w/ Childcare or Family Care: No Living arrangements: with family Spiritual care concerns: No Anes - Eval Final PreProcedure Day of Procedure 03/18/25 09:15 Heart: regular rate and rhythm Lungs: clear to auscultation Airway: Mallampati scale class II Neurological: alert and oriented Last oral intake: >/= 8 hours ASA classification: II Anesthetic plan: proceed Anesthesia type and monitoring: general Results Review: All pre-operative results and documents have been reviewed as part of the pre- operative evaluation. Informed Consent: The patient's anesthetic plan and its attendant risks and benefits were discussed with the patient/family/POA. Questions were solicited and answers provided to the satisfaction of the patient/family/POA.
[2025-03-18] MEDS: SCOPOLAMINE 1 MG PATCH 1 PATCH (09:18)
[2025-03-18] MEDS: SCOPOLAMINE 1 MG PATCH 1.5 PATCH TRANSDERM (09:19)
[2025-03-18] MEDS: CLINDAMYCIN 900 MG/NS 50 ML 900 MG/50 ML PIGGYBACK 50 MG IVPB (09:19)
[2025-03-18] MEDS: OXYMETAZOLINE HCL 0.05% NAS 15 ML BTL (*BKC) 1 SPRAY (09:52)
[2025-03-18] MEDS: LIDO 1%/EPINEPHRINE 1:100,000 20 ML VIAL (09:52)
[2025-03-18] MEDS: MUPIROCIN 2% OINT 22 GM TUBE 1 APPLIC (10:04)
--- NOTE | 2025-03-18 11:14 | P.OP_ITS ---
Procedure Note - Detailed Date of Procedure 03/18/25 Pre-op Diagnosis Nasal obstruction, nasal congestion, septal deviation, turbinate hypertrophy Post-op Diagnosis Same Procedure Performed 1. Endoscopic assisted septoplasty 2. Bilateral inferior turbinate reduction with outfracture submucosally with microdebrider Surgeon Geraldo Reardon MD Anesthesia General Indications See above Findings Severely deviated rightward septum and large turbinates Description of Procedure Patient identified consent verified preoperatively. Patient brought operating. Time-out performed. General anesthesia induced endotracheal tube secured. Patient prepped draped position procedure confirmed 2nd time-out performed. Total 15 cc 1% lidocaine with 1 100,000 parts epinephrine checked the bilateral nasal septum and inferior turbinates. [place] incision made left side left nasal septal flap elevated no tears osteotome utilized to cross over anterior to the deviation. Right side elevated small tear moderate tear over the spur. Deviated septum removed osteotome Pierre Zambrano forceps and Darinel forceps. Care septal flap washed out with sterile normal saline. [place] incision closed sutured with 5 interrupted 5 0 fast gut sutures. Turbinates stab anteriorly a 15 blade this was bilateral. Reduced in the submucosal plane using microdebrider with 2 mm turbinate blade. Then outfractured with [place] elevator. Bilateral nasal passages suctioned out. Total blood loss 20 cc. [place] splints were placed and sutured anteriorly using a 3-0 mattress nylon suture. I performed all dictated portions of procedure. No complications. Care the patient given back to Anesthesiology. Patient taken to PACU in good condition. Estimated Blood Loss 20 Drains No Packing No Pathology None sent Complications No immediate complications Condition Stable Disposition PACU [facility] Billing Surgery - Charge Forward: Surgery Billing
[2025-03-18] MEDS: oxyCODONE HCL (*CRX) 5 MG TAB IR PO (11:56)
== END 2025-03-18 12:30 | disposition home or self-care (01) ==
PROVIDERS: PCP Internal Medicine; Visit Provider Otolaryngology
PROC: (CPT 30520; principal; 2025-03-18 08:30)
PROC: (CPT 30520; 2025-03-18 08:30)
DX: J34.3 Hypertrophy of nasal turbinates (principal); J34.2 Deviated nasal septum; J34.89 Other specified disorders of nose and nasal sinuses
CPT/HCPCS: 30520; 30140 ×2